=== PATIENT | female | born 1950 | race Caucasian/White ===

== ENCOUNTER 2020-05-28 19:34 | Emergency (ER) | payer MEDICARE, BC, OTHER ==
[~2020-05-28 19:34] MED LIST: CARAFATE1 GM/10 ML PO; DECADRON6 MG PO; DITROPAN 5 MG TA5 MG PO; MACROBID 100 M100 MG PO; PROTONIX 40 MG40 M1 PO; SYNTHROID125 MCG PO; ZANTAC150 MG PO; ZITHROMAX250 MG PO
[2020-05-28 20:12] LABS: HEMOGLOBIN 13.5 gm/dl (12.3-15.3); RED BLOOD COUNT 4.35 M/UL (4.00-5.10); WHITE BLOOD COUNT 5.5 K/UL (4.5-11.0)
[2020-05-28 20:30] LABS: BUN/CREATININE RATIO 15 (0-10)
== END 2020-05-28 22:39 | disposition home or self-care (01) ==
LOC: ER1 19:34
PROVIDERS: Physician Assistant
DX: R07.89 Other chest pain (principal); Z20.822 Contact with and (suspected) exposure to COVID-19
CPT/HCPCS: 0240U; 36415; 71045; 80053; 82550; 82553; 83874; 84484; 85025; 85379; 93005; 99285

== ENCOUNTER 2020-08-07 11:51 | Emergency (ER) | payer MEDICARE, BC ==
[2020-08-07] MEDS ORDERED: HYDROCHLOROTH12.5 MG PO (14:57)
== END 2020-08-07 15:02 | disposition home or self-care (01) ==
LOC: ER1 11:51
DX: I10 Essential (primary) hypertension (principal)
CPT/HCPCS: 99283

== ENCOUNTER → 2020-11-12 | Outpatient (CLI) | payer MEDICARE, BC ==
[~2020-11-12] MED LIST changes: +HYDROCHLOROTH12.5 MG PO
== END ==
LOC: MAMO 10:30
DX: Z12.31 Encounter for screening mammogram for malignant neoplasm of breast (principal); M81.0 Age-related osteoporosis without current pathological fracture
CPT/HCPCS: 77063; 77067; 77080

== ENCOUNTER 2021-03-16 13:40 | Emergency (ER) | payer MEDICARE, BC ==
[2021-03-16] MEDS ORDERED: WALKER (16:46)
== END 2021-03-16 16:55 | disposition home or self-care (01) ==
LOC: ER1 13:40
DX: S32.10XA Unspecified fracture of sacrum, initial encounter for closed fracture (principal); I10 Essential (primary) hypertension; K21.9 Gastro-esophageal reflux disease without esophagitis
CPT/HCPCS: 72192; 99283

== ENCOUNTER → 2021-09-25 | Outpatient (CLI) | payer MEDICARE, OTHER ==
[~2021-09-25] MED LIST changes: +BUPROPION HCL200 MG PO; +COZAAR 50MG TAB50 MG PO; +FAMOTIDINE40 MG PO; +ONDANSETRON ODT8 MG PO; +WALKER
== END ==
LOC: EXRD 14:07
DX: R07.9 Chest pain, unspecified (principal); M54.2 Cervicalgia; M51.36 Other intervertebral disc degeneration, lumbar region; M47.816 Spondylosis without myelopathy or radiculopathy, lumbar region; M43.16 Spondylolisthesis, lumbar region
CPT/HCPCS: 71046; 72040; 72070; 72100

== ENCOUNTER → 2021-10-03 | Outpatient (CLI) | payer MEDICARE, OTHER | LOC: NM 07:30 | DX: R06.02 Shortness of breath (principal); R53.83 Other fatigue; R68.89 Other general symptoms and signs | CPT/HCPCS: ECHO; 78452; 93306; A9502 ==

== ENCOUNTER 2021-10-30 14:50 | Emergency (ER) | payer MEDICARE, OTHER ==
[2021-10-30 15:18] LABS: RED BLOOD COUNT 3.56 M/UL (4.00-5.10); WHITE BLOOD COUNT 4.8 K/UL (4.5-11.0)
[2021-10-30] MEDS ORDERED: CEFUROXIME500 MG PO (17:40)
== END 2021-10-30 18:28 | disposition home or self-care (01) ==
LOC: ER1 14:50
DX: S52.601A Unspecified fracture of lower end of right ulna, initial encounter for closed fracture (principal); S51.811A Laceration without foreign body of right forearm, initial encounter; I10 Essential (primary) hypertension; W19.XXXA Unspecified fall, initial encounter
CPT/HCPCS: 70450; 71045; 73090; 73100; 73130; 80053; 82550; 82553; 84484; 85025; 93005; 99284